=== PATIENT | male | born 1965 | race Hispanic/Latino ===

== ENCOUNTER 2019-05-08 00:59 | Observation (INO) | payer SELFPAY ==
[2019-05-08 01:38] LABS: Absolute Lymphocytes (CBC) 1.4 K/uL (0.7-4.9); Basophils % 0.7 % (0-1.3); Lymphocytes % 12.9 % (15.3-44.8); MPV 9.9 fL (7.6-11.3); Protime INR 0.89; RBC Red Blood Cell Count 3.68 M/uL (4.33-5.43)
[2019-05-08 01:53] LABS: ALT/SGPT 15 U/L (12-78); AST/SGOT 9 U/L (15-37); Albumin 3.2 g/dL (3.4-5.0); Alkaline Phosphatase 81 U/L (45-117); BUN Blood Urea Nitrogen 35 mg/dL (7-18); Bicarbonate 22 mmol/L (21-32); Bilirubin Direct 0.1 mg/dL (0-0.2); Bilirubin Total 0.2 mg/dL (0.2-1.0); Glucose Level 119 mg/dL (74-106); Lipase 286 U/L (73-393); Magnesium 2.3 mg/dL (1.8-2.4); NT PRO-BNP 455 pg/mL (<125); Potassium 3.7 mmol/L (3.5-5.1); Protein, Total 6.3 g/dL (6.4-8.2); Sodium Level 142 mmol/L (136-145); Troponin (Emerg Dept Use Only) < 0.02 ng/mL (0.0-0.045)
[2019-05-08] MEDS ORDERED: ASPIRIN 81 MG CHEWABLE TABLET ONE (02:01)
--- NOTE | 2019-05-08 02:19 | ER ---
Nurse's Notes [facility] Name: Allan Alcazar Age: 53 yrs Sex: Male : 1965 Arrival Date: 05/08/2019 Time: 01:00 Bed 4 Private MD: Diagnosis: Chest pain, unspecified Presentation: 05/08 01:13 Presenting complaint: Child states: STARTED HAVING CHEST PAIN AT AROUND 9PM LAST NIGHT. rv HE IS JUST LYING DOWN WHEN HE FELT THROBBING PAIN ON THE LEFT SIDE OF THE CHEST RADIATING TO THE RIGHT SIDE, 7/10 PAIN SCALE, INTERMITTENT. TOOK MOTRIN, GOT A LITTLE BIT OF RELIEF. Transition of care: patient was not received from another setting of care. Onset of symptoms was May 07, 2019 at 21:00. Risk Assessment: Do you want to hurt yourself or someone else? Patient reports no desire to harm self or others. Initial Sepsis Screen: Does the patient meet any 2 criteria? No. Patient's initial sepsis screen is negative. Does the patient have a suspected source of infection? No. Patient's initial sepsis screen is negative. Care prior to arrival: None. 01:13 Method Of Arrival: Ambulatory rv 01:13 Acuity: MYRA 3 rv Triage Assessment: 01:17 General: Appears in no apparent distress. uncomfortable, Behavior is calm, cooperative. rv Pain: Complains of pain in chest Pain radiates to anterior aspect of right upper chest Pain currently is 7 out of 10 on a pain scale. Quality of pain is described as throbbing, Pain began 4 hours ago. Is intermittent. EENT: No signs and/or symptoms were reported regarding the EENT system. Neuro: Level of Consciousness is awake, alert, obeys commands, Oriented to person, place, time, situation. Cardiovascular: Patient's skin is warm and dry. Rhythm is sinus rhythm. Respiratory: Airway is patent. GI: No signs and/or symptoms were reported involving the gastrointestinal system. : No signs and/or symptoms were reported regarding the genitourinary system. Derm: Skin is intact. Musculoskeletal: No signs and/or symptoms reported regarding the musculoskeletal system. Historical: - Allergies: 01:16 No Known Allergies; rv - Home Meds: 01:16 metoprolol tartrate 100 mg oral tab [Active]; losartan 50 mg oral tab 1 tab 2 times per rv day [Active]; Simvastatin Oral [Active]; - PMHx: 01:16 Hypertension; High Cholesterol; rv - PSHx: 01:16 None; rv - Immunization history:: Adult Immunizations unknown. - Social history:: Smoking status: Patient uses tobacco products, smokes one pack cigarettes per day. - Ebola Screening: : No symptoms or risks identified at this time. Screenin:17 Abuse screen: Denies threats or abuse. Denies injuries from another. Nutritional rv screening: No deficits noted. Tuberculosis screening: No symptoms or risk factors identified. Fall Risk None identified. Assessment: 01:24 General: Appears in no apparent distress. Behavior is calm, cooperative. Pain: lp1 Complains of pain in chest Pain radiates to back Pain currently is 7 out of 10 on a pain scale. Quality of pain is described as sharp, Pain began gradually, Aggravated by pain worsened on movement per patient. Neuro: Level of Consciousness is awake, alert, obeys commands, Oriented to person, place, time, situation. Cardiovascular: Reports chest pain, Patient's skin is warm and dry. Rhythm is sinus rhythm. Respiratory: Respiratory effort is even, unlabored, Breath sounds are clear bilaterally. GI: No signs and/or symptoms were reported involving the gastrointestinal system. : No signs and/or symptoms were reported regarding the genitourinary system. EENT: No signs and/or symptoms were reported regarding the EENT system. Derm: Skin is intact, Skin is dry, Skin is normal. Musculoskeletal: No deficits noted. 02:30 Reassessment: Patient appears in no apparent distress at this time. Patient and/or lp1 family updated on plan of care and expected duration. Pain level reassessed. Patient states feeling better. 03:30 Reassessment: Patient and/or family updated on plan of care and expected duration. Pain lp1 level reassessed. Aware of admission. 04:30 Reassessment: Patient appears in no apparent distress at this time. No changes from lp1 previously documented assessment. Vital Signs: 01:15 BP 148 / 70; Pulse 61; Resp 19; Pulse Ox 99% ; Weight 58.97 kg; Height 5 ft. 2 in. rv (157.48 cm); Pain 7/10; 01:24 Temp 99.4(O); lp1 02:00 BP 120 / 70; Pulse 60; Resp 20; Pulse Ox 98% on R/A; lp1 02:35 BP 138 / 70; Pulse 61; Resp 18; Pulse Ox 99% on R/A; lp1 03:30 BP 122 / 70; Pulse 58; Resp 15; Pulse Ox 99% on R/A; lp1 04:29 BP 125 / 69; Pulse 62; Resp 16; Pulse Ox 99% on R/A; lp1 01:15 Body Mass Index 23.78 (58.97 kg, 157.48 cm) rv ED Course: 01:00 Patient arrived in ED. ag3 01:12 Teodoar Wallace, RN is Primary Nurse. lp1 01:15 Triage completed. rv 01:15 Inserted saline lock: 20 gauge in right forearm, using aseptic technique. Blood lp1 collected. 01:18 Patient has correct armband on for positive identification. Placed in gown. Bed in low rv position. Call light in reach. Side rails up X2. Adult w/ patient. 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 Pulse ox on. NIBP on. 01:18 Patient maintains SpO2 saturation greater than 95% on room air. rv 01:26 Arm band placed on left wrist. lp1 01:28 Phillip Boss PA is PHCP. jmm 01:28 Carter Klein MD is Attending Physician. jmm 01:58 X-ray completed. Portable x-ray completed in exam room. Patient tolerated procedure kw well. 02:00 XRAY Chest (1 view) In Process Unspecified. EDMS 02:17 Lance Aguilar MD is Hospitalizing Provider. jmm 02:36 No provider procedures requiring assistance completed. Patient admitted, IV remains in lp1 place. Administered Medications: 02:01 Drug: Aspirin Chewable Tablet 324 mg Route: PO; lp1 03:00 Follow up: Response: No adverse reaction lp1 Outcome: 02:18 Decision to Hospitalize by Provider. jmm 02:36 Condition: stable lp1 02:36 Instructed on the need for admit. 04:36 Admitted to Tele via wheelchair, room 421, with chart, Report called to HANK Smith lp1 05:00 Patient left the ED. lp1 Signatures: Dispatcher [employer] EDMS Phillip Boss PA PA Mariana Galvez Teodora Wallace, HANK MCKINNEY lp1 Javier Martínez RN RN Taryn Glez ag3 Corrections: (The following items were deleted from the chart) 05:16 05:15 Patient left the ED. lp1 lp1
--- NOTE | 2019-05-08 02:20 | EDPHYS ---
Physician Documentation [facility] Name: Allan Alcazar Age: 53 yrs Sex: Male : 1965 Arrival Date: 05/08/2019 Time: 01:00 Bed 4 Private MD: ED Physician Carter Klein HPI: 05/08 01:42 This 53 yrs old Male presents to ER via Ambulatory with complaints of Chest jmm Pain. 01:42 The patient or guardian reports chest pain that is located primarily in the substernal jm area. Onset: gradually, 1 day(s) ago. The pain radiates to the left arm. Associated signs and symptoms: Pertinent negatives: abdominal pain, cough. The chest pain is described as aching, sharp. Duration: The patient or guardian reports a single episode, that is still ongoing. Modifying factors: the symptoms are aggravated by movement. This is a 53 year old male with a history of htn that presents to the ED with complaints of substernal chest pain which began last night. Patient states the pain now radiates to his left arm and worsens with movement. . Historical: - Allergies: 01:16 No Known Allergies; rv - Home Meds: 01:16 metoprolol tartrate 100 mg oral tab [Active]; losartan 50 mg oral tab 1 tab 2 times per rv day [Active]; Simvastatin Oral [Active]; - PMHx: 01:16 Hypertension; High Cholesterol; rv - PSHx: 01:16 None; rv - Immunization history:: Adult Immunizations unknown. - Social history:: Smoking status: Patient uses tobacco products, smokes one pack cigarettes per day. - Ebola Screening: : No symptoms or risks identified at this time. ROS: 01:45 Constitutional: Negative for fever, chills, and weight loss. jmm 01:45 Respiratory: Negative for shortness of breath, cough, wheezing, and pleuritic chest pain, Abdomen/GI: Negative for abdominal pain, nausea, vomiting, diarrhea, and constipation, Neuro: Negative for headache, weakness, numbness, tingling, and seizure. 01:45 Cardiovascular: Positive for chest pain. 01:45 All other systems are negative. Exam: 01:45 Constitutional: This is a well developed, well nourished patient who is awake, alert, jmm and in no acute distress. Head/Face: atraumatic. Eyes: EOMI, no conjunctival erythema appreciated ENT: Moist Mucus Membranes Neck: Trachea midline, Supple Chest/axilla: Normal chest wall appearance and motion. 01:45 Respiratory: Normal respirations, no respiratory distress appreciated Abdomen/GI: Non distended, soft Back: Normal ROM Skin: General appearance color normal MS/ Extremity: Moves all extremities, no obvious deformities appreciated, no edema noted to the lower extremities Neuro: Awake and alert, normal gait Psych: Behavior is normal, Mood is normal, Patient is cooperative and pleasant 01:45 Cardiovascular: Rate: normal, Rhythm: regular, Pulses: no pulse deficits are appreciated. Vital Signs: 01:15 BP 148 / 70; Pulse 61; Resp 19; Pulse Ox 99% ; Weight 58.97 kg; Height 5 ft. 2 in. rv (157.48 cm); Pain 7/10; 01:24 Temp 99.4(O); lp1 02:00 BP 120 / 70; Pulse 60; Resp 20; Pulse Ox 98% on R/A; lp1 02:35 BP 138 / 70; Pulse 61; Resp 18; Pulse Ox 99% on R/A; lp1 03:30 BP 122 / 70; Pulse 58; Resp 15; Pulse Ox 99% on R/A; lp1 04:29 BP 125 / 69; Pulse 62; Resp 16; Pulse Ox 99% on R/A; lp1 01:15 Body Mass Index 23.78 (58.97 kg, 157.48 cm) rv MDM: 01:35 Patient medically screened. [facility] 02:17 The patient was given aspirin in the Emergency Department. Data reviewed: vital signs, [facility] lab test result(s), EKG, radiologic studies, plain films. ED course: I discussed the patient with Dr. Aguilar whom accepted admission. . 05/08 01:17 Order name: Basic Metabolic Panel; Complete Time: 01:56 [facility] 05/08 01:17 Order name: CBC with Diff; Complete Time: 01:42 [facility] 05/08 01:17 Order name: LFT's; Complete Time: 01:56 [facility] 05/08 01:17 Order name: Magnesium; Complete Time: 01:56 [facility] 05/08 01:17 Order name: NT PRO-BNP; Complete Time: 01:56 [facility] 05/08 01:17 Order name: PT-INR; Complete Time: 01:42 [facility] 05/08 01:17 Order name: Troponin (emerg Dept Use Only); Complete Time: 01:56 [facility] 05/08 01:17 Order name: XRAY Chest (1 view) [facility] 05/08 01:17 Order name: Lipase; Complete Time: 01:56 [facility] 05/08 02:29 Order name: Lipid Profile [facility] 05/08 02:29 Order name: Lipid Profile [facility] 05/08 02:29 Order name: Troponin I [facility] 05/08 02:29 Order name: Troponin I [facility] 05/08 02:29 Order name: Troponin I [facility] 05/08 01:17 Order name: EKG; Complete Time: 01:19 [facility] 05/08 01:17 Order name: Cardiac monitoring; Complete Time: 01:23 [facility] 05/08 01:17 Order name: EKG - Nurse/Tech; Complete Time: 01:23 [facility] 05/08 01:17 Order name: IV Saline Lock; Complete Time: 01:23 [facility] 05/08 01:17 Order name: Labs collected and sent; Complete Time: 01:23 [facility] 05/08 01:17 Order name: O2 Per Protocol; Complete Time: 01:23 [facility] 05/08 01:17 Order name: O2 Sat Monitoring; Complete Time: 01:23 [facility] 05/08 02:29 Order name: CONS Physician Consult [facility] 05/08 02:29 Order name: Heart Healthy [facility] 05/08 02:29 Order name: Echo with Doppler [facility] 05/08 02:29 Order name: EKG Electrocardiogram [facility] 05/08 02:29 Order name: EKG Electrocardiogram [facility] Administered Medications: 02:01 Drug: Aspirin Chewable Tablet 324 mg Route: PO; lp1 03:00 Follow up: Response: No adverse reaction lp1 Disposition: 05/08/19 02:18 Hospitalization ordered by Lance Aguilar for Observation. Preliminary diagnosis is Chest pain, unspecified. - Bed requested for Telemetry/MedSurg (observation). - Status is Observation. lp1 - Condition is Stable. - Problem is new. - Symptoms are unchanged. UTI on Admission? No Addendum: 05/12/2019 08:25 Co-signature as Attending Physician, Carter Klein MD I agree with the assessment and c choudhary plan of care. Signatures: Dispatcher [employer] EDCarter Mares MD MD cha Mickail, Joel, PA PA [facility] Teodora Wallace, RN RN lp1 Suzanne Victor dc Javier Martínez, RN RN rv Corrections: (The following items were deleted from the chart) 05/08 01:45 01:42 This is a 53 year old male with a history of htn that prese. [facility] 04:20 02:18 Hospitalization Ordered by Lance Aguilar MD for Observation. Preliminary mt diagnosis is Chest pain, unspecified. Bed requested for Telemetry/MedSurg (observation). Status is Observation. Condition is Stable. Problem is new. Symptoms are unchanged. UTI on Admission? No. [facility] 04:36 04:20 05/08/2019 02:18 Hospitalization Ordered by Lance Aguilar MD for Observation. mt Preliminary diagnosis is Chest pain, unspecified. Bed requested for Telemetry/MedSurg (observation). Status is Observation. Condition is Stable. Problem is new. Symptoms are unchanged. UTI on Admission? No. mt 05:15 04:36 05/08/2019 02:18 Hospitalization Ordered by Lance Aguilar MD for Observation. lp1 Preliminary diagnosis is Chest pain, unspecified. Bed requested for Telemetry/MedSurg (observation). Status is Observation. Condition is Stable. Problem is new. Symptoms are unchanged. UTI on Admission? No. mt
[2019-05-08] MEDS ORDERED: ACETAMINOPHEN 500 MG TAB PO PRN (02:24)
[2019-05-08] MEDS ORDERED: MORPHINE 4 MG/ML SYR IV PRN (02:24)
[2019-05-08] MEDS ORDERED: ALPRAZOLAM 0.25 MG TABLET PO PRN (02:24)
[2019-05-08 06:27] VITALS: BMI 23.8
--- NOTE | 2019-05-08 08:11 | RAD REPORT ---
EXAM DESCRIPTION: RAD - Chest Single View - 05/08/2019 1:59 am CLINICAL HISTORY: CHEST PAIN Chest pain. COMPARISON: Chest Single View dated 06/14/2017; Chest Single View dated 06/05/2017 FINDINGS: Portable technique limits examination quality. Linear subsegmental atelectasis is present in the right mid lung. The lungs are otherwise clear. The heart is normal in size. No displaced fractures. IMPRESSION: No acute intrathoracic process suspected.
[2019-05-08] MEDS ORDERED: METOPROLOL TAR 50 MG TAB PO SCH ×2 (09:00→21:00)
[2019-05-08] MEDS ORDERED: ASPIRIN EC 81 MG TAB PO SCH (09:00)
[2019-05-08] MEDS ORDERED: HYDROCODONE/CHLORPHEN 5 ML/OSYR PO PRN (09:20)
--- NOTE | 2019-05-08 09:25 | P.HP ---
Certification for Inpatient Patient admitted to: Observation With expected LOS: <2 Midnights Patient will require the following post-hospital care: None Practitioner: I am a practitioner with admitting privileges, knowledge of patient current condition, hospital course, and medical plan of care. Services: Services provided to patient in accordance with Admission requirements found in Title 42 Section 412.3 of the Code of Federal Regulations Patient History Date of Service: 05/08/19 Reason for admission: Chest pain rule out acute coronary syndrome History of Present Illness: Patient is a 53-year-old gentleman who came into the hospital with chest discomfort. Pain was mainly in the sternal region and it radiates to both of his pectoralis area. Patient states he has had a cough. He may have upper respiratory symptoms. His chest x-ray was negative. He he may have developed some costochondritis. He does have some risk factors for cardiac disease as well. He does not speak [place] and had his family translate. He will have serial troponins and EKG performed. Will get an echocardiogram. This is negative then he should be stable for discharge with further outpatient follow- up. Would give him a dose of anti-inflammatories as well to see if this helps them if his troponins remain negative. Allergies No Known Allergies Allergy (Verified 05/08/19 05:54) Home Medications: Losartan/Hydrochlorothiazide [Losartan-Hctz 50-12.5 mg Tab] 1 each PO DAILY 08/14 Metoprolol Tartrate 100 mg PO BID 05/08/19 - Past Medical/Surgical History Has patient received pneumonia vaccine in the past: No Diabetic: No -: Tobacco abuse Past Surgical History: Patient denies surgical history - Family History Father Medical History: Heart disease, Hypertension - Social History Smoking Status: Current every day smoker Alcohol use: No CD- Drugs: No Caffeine use: No Place of Residence: Home Review of Systems 10-point ROS is otherwise unremarkable Physical Examination - Vital Signs Temperature: 98.1 F Blood Pressure: 134/70 Pulse: 60 Respirations: 22 Pulse Ox (%): 97 - Physical Exam General: Alert, In no apparent distress, Oriented x3 HEENT: Atraumatic, PERRLA, Mucous membr. moist/pink, EOMI, Sclerae nonicteric Neck: Supple, 2+ carotid pulse no bruit, No LAD, Without JVD or thyroid abnormality Respiratory: Clear to auscultation bilaterally, Normal air movement Cardiovascular: Regular rate/rhythm, Normal S1 S2, No murmurs Gastrointestinal: Normal bowel sounds, Soft and benign, Non-distended, No tenderness Musculoskeletal: No clubbing, Tenderness (Costochondritis) Integumentary: No rashes Neurological: Normal gait, Normal speech, Normal strength at 5/5 x4 extr, Normal tone, Sensation intact, Cranial nerves 3-12 intact, Normal affect Lymphatics: No axilla or inguinal lymphadenopathy - Studies Laboratory Data (last 24 hrs) 05/08/19 01:15: PT 10.6, INR 0.89 05/08/19 01:15: WBC 10.9, Hgb 11.9 L, Hct 34.0 L, Plt Count 185 05/08/19 01:15: Sodium 142, Potassium 3.7, BUN 35 H, Creatinine 1.13, Glucose 119 H, Magnesium 2.3, Total Bilirubin 0.2, AST 9 L, ALT 15, Alkaline Phosphatase 81, Lipase 286 Assessment & Plan - Problems (Diagnosis) (1) Chest pain, rule out acute myocardial infarction Current Visit: Yes Status: Acute (2) Costochondritis Current Visit: Yes Status: Acute (3) Hypertension Onset Date: 06/06/17 Current Visit: No Status: Acute (4) Tobacco abuse Onset Date: 06/06/17 Current Visit: No Status: Acute - Plan 1. Serial troponins and EKG 2. Cardiology consultation 3. Echocardiogram 4. Anti-platelet therapy, anti coagulation, beta-jerrica, statin, and O2 as needed 5. IV morphine for pain 6. IV steroids to assist with anti-inflammatories 7. GI and DVT prophylax the Discharge Plan: Home Plan to discharge in: 24 Hours - Advance Directives Does patient have a Living Will: No Does patient have a Durable POA for Healthcare: No - Code Status/Comfort Care Code Status Assessed: Yes Code Status: Full Code Critical Care: No Time Spent Managing PTS Care (In Minutes): 45
[2019-05-08] MEDS ORDERED: HYDROCORTISONE SUC 100 MG INJ IV ONE (10:00)
[2019-05-08 10:08] LABS: HDL Cholesterol 41 mg/dL (40-60); LDL Cholesterol, Calculated 76 (<130); Troponin I < 0.02 ng/mL (0.0-0.045)
--- NOTE | 2019-05-08 11:08 | EKG ---
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
[2019-05-08 11:22] VITALS: O2SAT 97
--- NOTE | 2019-05-08 11:40 | ECHO ---
HEIGHT: 5 ft 2 in WEIGHT: 130 lb 0 oz DATE OF STUDY: 05/08/[address]: Lance Aguilar MD 2-DIMENSIONAL: YES M.MODE: YES DOPPLER: YES COLOR FLOW: YES TDS: NO PORTABLE: NO DEFINITY: NO BUBBLE STUDY: NO DIAGNOSIS: CHEST PAIN CARDIAC HISTORY: CATHERIZATION: YES SURGERY: NO PROSTHETIC VALVE: NO PACEMAKER: NO MEASUREMENTS (cm) DIASTOLIC (NORMALS) SYSTOLIC (NORMALS) IVSd 0.9 (0.6-1.2) LA Diam 3.7 (1.9-4.0) LVEF 66% LVIDd 4.4 (3.5-5.7) LVIDs 2.8 (2.0-3.5) %FS 36% LVPWd 1.1 (0.6-1.2) Ao Diam 2.7 (2.0-3.7) 2 DIMENSIONAL ASSESSMENT: RIGHT ATRIUM: NORMAL LEFT ATRIUM: NORMAL RIGHT VENTRICLE: NORMAL LEFT VENTRICLE: NORMAL TRICUSPID VALVE: NORMAL MITRAL VALVE: NORMAL PULMONIC VALVE: NORMAL AORTIC VALVE: NORMAL PERICARDIAL EFFUSION: NONE AORTIC ROOT: NORMAL LEFT VENTRICULAR WALL MOTION: NORMAL DOPPLER/COLOR FLOW: TRACE MITRAL AND TRICUSPID REGURGITATION. COMMENTS: TRACE MITRAL AND TRICUSPID REGURGITATION. NORMAL LEFT VENTRICULAR SIZE AND FUNCTION. NO EFFUSION. NO WALL MOTION ABNORMALITY. TECHNOLOGIST: Ronan ROMO
--- NOTE | 2019-05-08 14:54 | P.DS ---
Admission Date: 05/08/19 Discharge Date: 05/08/19 Disposition: ROUTINE DISCHARGE Discharge Condition: GOOD Reason for Admission: Chest pain rule out acute coronary syndrome Consultations: Cardiology-Dr. Kearney. - Problems (1) Chest pain, rule out acute myocardial infarction Current Visit: Yes Status: Acute (2) Costochondritis Current Visit: Yes Status: Acute Brief History of Present Illness: 53-year-old gentleman with known coronary artery disease presents to the emergency department with chest pain, located in the sternal area, radiates to both sides of the chest, associated back pain. He stated the chest pain was preceded by cough and upper respiratory symptoms. His initial troponin was negative. EKG unremarkable. Patient suspected to have costochondritis. He was placed under observation for ACS rule out given his high cardiac risk factors. Hospital Course: He was placed under observation with telemetry. Troponin trended came back negative. Echocardiogram performed was unremarkable. His chest pain appeared more musculoskeletal in nature and reproducible by palpation. He was evaluated by cardiology-Dr. Kearney will also felt his chest pain is not of cardiac origin. Patient was deemed clinically stable for discharge. He is discharged with cough suppressant and [place] p.r.n. for pain. Vital Signs/Physical Exam: Temp Pulse Resp BP Pulse Ox 98.1 F 60 18 134/70 96 05/08/19 09:25 05/08/19 09:25 05/08/19 09:26 05/08/19 09:25 05/08/19 09:26 General: Alert, In no apparent distress, Oriented x3 HEENT: Atraumatic, Normocephalic, Mucous membr. moist/pink Neck: Supple, JVD not distended, No Thyromegaly Respiratory: Clear to auscultation bilaterally, Normal air movement, Other ( Anterior chest wall is tender to palpation) Cardiovascular: No edema, Regular rate/rhythm, Normal S1 S2 Gastrointestinal: Normal bowel sounds, Soft and benign, No tenderness Musculoskeletal: No clubbing, No swelling, No erythema Integumentary: No rashes Neurological: Normal strength at 5/5 x4 extr, Cranial nerves 3-12 intact Lymphatics: No axilla or inguinal lymphadenopathy Laboratory Data at Discharge: WBC 10.9 K/uL (4.3-10.9) 05/08/19 01:15 Hgb 11.9 g/dL (13.6-17.9) L 05/08/19 01:15 Hct 34.0 % (39.6-49.0) L 05/08/19 01:15 Plt Count 185 K/uL (152-406) 05/08/19 01:15 PT 10.6 SECONDS (9.5-12.5) 05/08/19 01:15 INR 0.89 05/08/19 01:15 Sodium 142 mmol/L (136-145) 05/08/19 01:15 Potassium 3.7 mmol/L (3.5-5.1) 05/08/19 01:15 BUN 35 mg/dL (7-18) H 05/08/19 01:15 Creatinine 1.13 mg/dL (0.55-1.3) 05/08/19 01:15 Glucose 119 mg/dL (74-106) H 05/08/19 01:15 Magnesium 2.3 mg/dL (1.8-2.4) 05/08/19 01:15 Total Bilirubin 0.2 mg/dL (0.2-1.0) 05/08/19 01:15 AST 9 U/L (15-37) L 05/08/19 01:15 ALT 15 U/L (12-78) 05/08/19 01:15 Alkaline Phosphatase 81 U/L (45-117) 05/08/19 01:15 Troponin I < 0.02 ng/mL (0.0-0.045) 05/08/19 09:23 Triglycerides 131 mg/dL (<150) 05/08/19 09:23 Cholesterol 143 mg/dL (<200) 05/08/19 09:23 HDL Cholesterol 41 mg/dL (40-60) 05/08/19 09:23 Cholesterol/HDL Ratio 3.49 05/08/19 09:23 Lipase 286 U/L (73-393) 05/08/19 01:15 Home Medications: Hydrocodone/Acetaminophen [[place] 5-325 Tablet] 1 each PO Q6H PRN 5 Days #20 tablet 05/08/19 Hydrocodone/Chlorphen Polis [Tussionex Oral Susp*] 5 ml PO BID PRN 10 Days #1 bottle 05/08/19 Losartan/Hydrochlorothiazide [Losartan-Hctz 50-12.5 mg Tab] 1 each PO DAILY 08/14 Metoprolol Tartrate 100 mg PO BID 05/08/19 New Medications: Hydrocodone/Acetaminophen [[place] 5-325 Tablet] 1 each PO Q6H PRN 5 Days #20 tablet PRN Reason: Pain Scale 5-7 (Moderate) Hydrocodone/Chlorphen Polis [Tussionex Oral Susp*] 5 ml PO BID PRN 10 Days #1 bottle PRN Reason: Cough Diet: AHA Activity: Ad omar
[2019-05-08] MEDS ORDERED: ENOXAPARIN 40 MG/0.4 ML SQ SCH (17:00)
[2019-05-08 17:54] VITALS: BP 129/69; TEMP 98.7
--- NOTE | 2019-05-09 08:04 | CON ---
Date of Consultation: 05/08/2019 The patient admitted on 05/08/2019. I saw him on 05/08/2019. Reason For Consultation: Chest pain. History Of Present Illness: Patient is a 53-year-old [place] male. He has a history of hyper tension and has a history of mild coronary artery disease dating back to June 2017. He came in w ith chest pain that has been going on for approximately 48 hours, that is constant, increased with br eathing, radiating to the back. No shortness of breath. No PND, no orthopnea. He denied palpitatio n. Denied any syncope. Had some nausea, but no vomiting. He denied any diaphoresis. Symptoms are worse by moving and breathing. Describes the pain as stabbing. The pain is not exertional. It is s ometimes worse by eating and laying down. By the time I saw him, his EKG was nonspecific. His BNP, troponin, CPKs, and MBs were negative. Past Medical History: As stated above. Allergies: NONE. Review of Systems: Negative. Social History: Negative. Family History: Noncontributory. Medications: At home includes losartan with hydrochlorothiazide, metoprolol and Zocor, but I am not so sure if the patient is taking them. Physical Examination: Vital Signs: Stable. He was afebrile. He was in no acute distress. Was complaining of some pain w hen he took a deep breath. HEENT: Negative. Neck: Supple. No bruit. Chest: Clear to auscultation and percussion. Cardiac: Revealed a regular rhythm and rate. No murmu rs, gallops, or rubs. Abdomen: Benign. Extremities: Revealed no clubbing, cyanosis, or edema. Diagnostic Data: As stated earlier. Only abnormality is slight elevation of his BNP. Impression And Plan: Chest pain, does not sound cardiac in nature. It has been going on for 48 hour s and yet his EKGs is unremarkable. His troponin is negative. His CPKs and MBs are negative. His p ain gets worse with taking a deep breath and sometimes with eating and laying down. It is not exerti onal. This certainly could be musculoskeletal or gastroesophageal reflux disease in nature. His cat heterization 2016 showed a normal RCA normal, normal LAD, normal circumflex. He had an ostial ramus lesion that was too risky to stent because of its location close to the left main. I agree with the echocardiogram. I will make sure he is taking his medication like he is supposed to with metoprolol, Hyzaar and Zocor. I would like to add a proton pump inhibitor on him. I think an endoscopy may be reasonable if the proton pump inhibitor does not work. He has ruled out for an ME and I do not feel the need to redo a catheterization at this point. Case was discussed with Dr. Lynne. GENI/KELLY Voice ID: [id number] Report ID: [id number]
== END 2019-05-08 18:55 | disposition home or self-care (01) ==
LOC: ER 00:59 → ERHOLD 03:09 → 4TH 04:56
PROVIDERS: ADMIT Hospitalist; ATTEND Internal Medicine
DX: R07.89 Other chest pain (principal); M94.0 Chondrocostal junction syndrome [Tietze]; I10 Essential (primary) hypertension; I25.10 Atherosclerotic heart disease of native coronary artery without angina pectoris; F17.200 Nicotine dependence, unspecified, uncomplicated
CPT/HCPCS: 36415; 71045; 80048; 80061; 80076; 83690; 83735; 83880; 84484; 85025; 85610; 93005; 93306; 99285; G0378; J1650; J1720